=== PATIENT | male | born 1960 | race Caucasian/White ===

== ENCOUNTER → 2018-05-21 | Outpatient (CLI) | payer BC ==
--- NOTE | 2018-05-21 14:34 | CONS ---
CONSULTATION DATE OF SERVICE: 05/21/2017 A 57-year-old gentleman who has been [facility] for obstructive sleep apnea-hypopnea syndrome. HISTORY OF PRESENT ILLNESS/SLEEP-WAKE EVALUATION: Patient has history of obstructive sleep apnea for several years. The last titration done in 2013. Since that time, patient is on treatment with CPAP at 10 cm of water. He is using equipment every night for the whole night. Recently developed problem with his CPAP unit. Sometimes unit does not start with pushing main. His sleep schedule on working days from 9 p.m. to 4 am, on weekends from 9 p.m. to 7 a.m. No problems with falling asleep. No TV in bedroom. He wakes up about 2 times with nocturia. [place] Sleepiness Scale is 3. Patient may take nap at normal time. No significant changes of weight since previous CPAP titration. PAST MEDICAL HISTORY: Positive for hypertension and periodic limb movements. No significant periodic limb movements at the present time. PAST SURGICAL HISTORY: None. SOCIAL HISTORY: Negative for smoking or using alcohol. FAMILY HISTORY: Hypertension, heart problems, sleep apnea, snoring, diabetes, restless legs. MEDICATIONS: Lisinopril. REVIEW OF SYSTEMS: Sometimes awakenings from sleep. PHYSICAL EXAM: gentleman without distress, BP 152/82, HR 96, RR 16, height 68-1/2 inches, weight 240 pounds. Body mass index 35.8, temperature 98.3, oxygen desaturation at room air 96%. OROPHARYNX: Low position of soft palate. Mallampati 3. Wide neck 18.5 inches in circumference. ABDOMEN: Obese. HEENT PERRLA, EOMI, evaluation of oropharynx showed tongue protrudes midline. Neck Supple, no JVD. Thyroid is not palpable. LUNGS Clear to percussion and to auscultation. Good air exchange. No wheezing or rhonchi. HEART S1, S2 regular. No murmurs, gallops, or rubs. EXTREMITIES No clubbing or cyanosis. ASSISTED LIVING ASSOCIATE Awake, alert, and oriented X3. Cranial nerves 2 to 7 intact. There is no fasciculation or atrophy. noted. No focal deficits observed. IMPRESSION: 1. Obstructive sleep apnea-hypopnea syndrome. Patient continued to have treatment with CPAP every night, but has problem with his present CPAP unit. 2. Obesity. 3. Hypertension. 4. History of periodic limb movements, nor any clinical symptoms of periodic limb movements at the present time. PLAN: 1. Prescription for new CPAP unit and all necessary CPAP supplies. 2. Losing weight. 3. Sleep hygiene with regular time in bed for at least 8 hours. 4. No driving if feeling sleepiness. 5. Patient will continue to use CPAP equipment every night for the whole night. Thank you very much for allowing me to participate in the management of your patient. Sincerely, Tin Bravo MD, PhD, FAASM Diplomat of [employer] Director Immunology [facility] [place] MMODL / QIANN: [id number] /
== END | disposition home or self-care (01) ==
LOC: SLEEP 13:30
PROVIDERS: ATTEND Internal Medicine
DX: G47.33 Obstructive sleep apnea (adult) (pediatric) (principal); E66.9 Obesity, unspecified; I10 Essential (primary) hypertension; G47.61 Periodic limb movement disorder; Z68.35 Body mass index [BMI] 35.0-35.9, adult; Z99.89 Dependence on other enabling machines and devices; Z79.899 Other long term (current) drug therapy
CPT/HCPCS: 99211

== ENCOUNTER → 2018-08-21 | Outpatient (CLI) | payer BC ==
--- NOTE | 2018-08-21 19:13 | PN ---
PROGRESS NOTE DATE OF SERVICE: 08/21/2018 58-year-old gentleman who has been followed [facility] for treatment of obstructive sleep apnea-hypopnea syndrome. Recently patient received new CPAP unit. He started to use this unit without any problems. He is able to use it every night for the whole night without problems related to mask fitting, pressure or humidification. [place] Sleepiness Scale today is 0. I checked outpatient CPAP unit, range of the pressure of 5-12 cm of water. Usage is every night 30/30 nights more than 4 hours. Average usage is 7.8 hours, which is great hours. Pressure is 11.9. Leak is 26 L/minute which is a borderline. Apnea-hypopnea index is only 2.3, which is in normal range. MEDICATIONS: Lisinopril. PHYSICAL EXAM: Patient in no distress. Blood pressure 120/81, HR 106, RR 16, weight 239, temp 98.3, oxygen saturation at room air 97%. Oropharynx low position of soft palate. Mallampati 3. ABDOMEN: Obese. Neck Supple, no JVD. Thyroid is not palpable. LUNGS Clear to percussion and to auscultation. Good air exchange. No wheezing or rhonchi. HEART S1, S2 regular. No murmurs, gallops, or rubs. ABDOMEN: Obese. Soft and nontender. Bowel sounds are present. No organomegaly appreciated. EXTREMITIES No clubbing or cyanosis. 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 Cranial nerves 2 to 7 intact. There is no fasciculation or atrophy. noted. No focal deficits observed. IMPRESSION: 1. Obstructive sleep apnea-hypopnea syndrome. The patient demonstrated 100% compliance with treatment benefitting from treatment. 2. Obesity. 3. Hypertension. 4. History of periodic limb movements in the past. No any clinical symptoms of periodic limb movements at the present time. PLAN: 1. Patient will continue to use CPAP equipment every night for the whole night. 2. Losing weight. 3. Sleep hygiene with regular time in bed for at least 7 and one half to 8 hours. 4. No driving if feeling sleepiness. 5. We will maintain all necessary prescriptions for CPAP including mask, tube, filters. 6. Followup visit in 1 year or earlier if patient has any problems. Thank you very much for allowing me to participate in management of your patient. Sincerely, Tin Bravo MD, PhD, FAASM Diplomat of [employer] [employer] [employer] Helper [facility] [place] MMODL / QIANN: [id number] /
== END | disposition home or self-care (01) ==
LOC: SLEEP 16:04
PROVIDERS: ATTEND Internal Medicine
DX: G47.33 Obstructive sleep apnea (adult) (pediatric) (principal); E66.9 Obesity, unspecified; I10 Essential (primary) hypertension; Z99.89 Dependence on other enabling machines and devices